=== PATIENT | female | born 1995 | race Caucasian/White ===

== ENCOUNTER 2020-01-11 08:28 | Day surgery (SDC) | payer OTHER, SELFPAY ==
[2020-01-05 18:43] VITALS: BMI 26.6
--- NOTE | 2020-01-09 15:37 | HO.ANESPROP2 ---
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 at home: Yes Do you presently have visiting nurse or other home services: No Smoking Status: Current every day smoker Smoked in Last 30 Days: Yes Patient Interested in Nicotine Replacement: No Use of substances other than those prescribed or required for medical reasons: Yes Substance Use Frequency: Daily Advance Directives: No Advance Directives Information Provided: No Advance Directives on File: No Recently lost weight without trying: No Meds Allergies Allergy/AdvReac Type Severity Reaction Status Date / Time amoxicillin Allergy Unknown unknown Verified 12/14/19 14:40 sulfacetamide Allergy Unknown Unknown Verified 12/14/19 14:40 [From Sulfacet-R] sulfur [From Sulfacet-R] Allergy Unknown Unknown Verified 12/14/19 14:40 Latex, Natural Rubber Allergy Itching Verified 01/05/20 18:43 Dust Mite Mixed Allergen Ext Allergy Unknown Unknown Uncoded 12/14/19 14:40 Home Medications Medication Instructions Recorded Confirmed Type bupropion HCl 300 mg PO DAILY 01/05/20 01/05/20 History cetirizine 1 tab PO DAILY 01/05/20 01/05/20 History fluticasone propionate 2 spray INTRANASAL DAILY 01/05/20 01/05/20 History lamotrigine 200 mg PO DAILY 01/05/20 01/05/20 History omeprazole 40 mg PO DAILY 01/05/20 01/05/20 History propranolol 60 mg PO BEDTIME 01/05/20 01/05/20 History Exam Exam Date and Time: January 09, 2020 1537 Height,Weight and Vital Signs: Height 5 ft 5 in Weight 72.575 kg Pertinent Lab Results Pertinent Lab Results: Laboratory Tests 10/03/19 10/03/19 16:35 16:35 WBC 7.2 Hgb 13.3 Hct 38.1 Plt Count 354 Sodium 139 Potassium 4.0 Chloride 106 BUN 13 Creatinine 0.95 Assessment and Plan Assessment Anesthesia Assessment: Chart Reviewed Documented by User: Ethna Hammer 01/11/20 10:13 PMFSH Past Medical History Medical History Anxiety Arthritis Depression Migraine Family History Family History Father Substance abuse Mother Bipolar disorder Family/Other FHx: mental illness Surgical History Surgical History No pertinent past surgical history Social History Social History Are you a primary respiratory care program director to a significant other at home: Yes Do you presently have visiting nurse or other home services: No Smoking Status: Current every day smoker Smoked in Last 30 Days: Yes Patient Interested in Nicotine Replacement: No Use of substances other than those prescribed or required for medical reasons: Yes Substance Use Frequency: Daily Advance Directives: No Advance Directives Information Provided: No Advance Directives on File: No Recently lost weight without trying: No Meds Allergies Allergy/AdvReac Type Severity Reaction Status Date / Time amoxicillin Allergy Unknown unknown Verified 12/14/19 14:40 sulfacetamide Allergy Unknown Unknown Verified 12/14/19 14:40 [From Sulfacet-R] sulfur [From Sulfacet-R] Allergy Unknown Unknown Verified 12/14/19 14:40 Latex, Natural Rubber Allergy Itching Verified 01/05/20 18:43 Dust Mite Mixed Allergen Ext Allergy Unknown Unknown Uncoded 12/14/19 14:40 Home Medications Medication Instructions Recorded Confirmed Type bupropion HCl 300 mg PO DAILY 01/05/20 01/05/20 History cetirizine 1 tab PO DAILY 01/05/20 01/05/20 History fluticasone propionate 2 spray INTRANASAL DAILY 01/05/20 01/05/20 History lamotrigine 200 mg PO DAILY 01/05/20 01/05/20 History omeprazole 40 mg PO DAILY 01/05/20 01/05/20 History propranolol 60 mg PO BEDTIME 01/05/20 01/05/20 History Exam Airway Mallampati Class: II TM Dist: >3cm Neck ROM: Full Loose/Missing/Broken Teeth: Yes (Chipped) Heart: RRR Assessment and Plan Assessment Anesthesia Assessment: Anesthesia Plan Discussed Final Anesthetic Review NPO: Yes ASA Class: II Final Preanesthetic Review: Consent Obtained/Reviewed Anesthetic Plan Anesthetic Plan: MAC: Disposition: Standard PACU
[2020-01-11 09:01] VITALS: BP 102/64; PULSE 84; RESP 16; TEMP 36.4; O2SAT 98
[2020-01-11] MEDS: Lactated Ringers 1,000 ML 100 ML IVCONT (09:04)
[2020-01-11 09:31] LABS: UPreg QC Valid YES; Urine Pregnancy NEGATIVE (NEGATIVE)
--- NOTE | 2020-01-11 09:42 | PC.NURSE ---
Lip ring removed, nasal ring removed by patient
--- NOTE | 2020-01-11 10:03 | MHC.SHP ---
Pre-Procedural Eval Section A The patient is an INPATIENT: No The History & Physical has been completed within 30 days and I have reviewed it.: No Section B Chief Complaint: Chronic Nausea Details of Present Illness: 24-year-old female follows up after recent barium swallow up for chronic nausea. She does use cannabis daily as well as jull. Omeprazole 20 mg daily-she continues to have nausea she does not feel it is acid reflux. HCG is negative, liver enzymes have been normal Chronic migraines-MRI- less than 2 years ago at - no findings- 11/16/2019 barium swallow IMPRESSION: Unremarkable examination. Relevant Family History (Specify if Yes): Yes Relevant Social History: Other (specify) (Marijuana use) Present Medications: see Short Stay Collaborative assessment Medical History: Significant History (Depression) Allergies: Allergies Allergy/AdvReac Type Severity Reaction Status Date / Time amoxicillin Allergy Unknown unknown Verified 12/14/19 14:40 sulfacetamide Allergy Unknown Unknown Verified 12/14/19 14:40 [From Sulfacet-R] sulfur [From Sulfacet-R] Allergy Unknown Unknown Verified 12/14/19 14:40 Latex, Natural Rubber Allergy Itching Verified 01/05/20 18:43 Dust Mite Mixed Allergen Ext Allergy Unknown Unknown Uncoded 12/14/19 14:40 Review of Systems Sugical H&P ROS: Negative: Constitution, Cardiovascular and Respiratory and Yes, Specify: Psychiatric (Depression) and Gastrointestinal (intermittent nausea) Exam Surgical H&P Exam: Normal: Heart, Normal: Lungs, Normal: Extremities and Normal: Abdomen Plan Diagnosis/Plan: Unchanged Patient has been examined and remains a candidate for the planned procedure
[2020-01-11 10:39] VITALS: BP 90/50; PULSE 79; RESP 16; TEMP 36.4; O2SAT 98
[2020-01-11 10:56] VITALS: BP 93/54; PULSE 68; RESP 16; O2SAT 97
[2020-01-11 11:09] VITALS: BP 111/47; PULSE 79; RESP 16; O2SAT 98
--- NOTE | 2020-01-11 11:21 | HO.POSTANES ---
Post Anesthesia Evaluation Post Anesthesia Evaluation Vital Signs: Vital Signs Temp Pulse Resp BP Pulse Ox 01/11/20 11:09 79 16 111/47 L 98 01/11/20 10:56 68 16 93/54 L 97 01/11/20 10:39 97.6 F 79 16 90/50 L 98 01/11/20 09:01 97.6 F 84 16 102/64 98 Anesthesia: Monitored Mental Status: Awake Pain Control: Satisfactory Nausea/Vomiting: None Hydration: Adequate Anesthesia-Related Issues: No Anes. Related Issues
--- NOTE | 2020-01-11 17:12 | P.OP_ITS ---
Operative Note Operative Note Narrative: Date of procedure: 01/11/20 Pre-op diagnosis: Chronic intermittent nausea x 6 months. No relief with Ondansetron. Smokes Marijuana since age 11 Post-op diagnosis: other ( gastritis) Procedure: FLEXIBLE TRANSORAL UPPER GASTROINTESTINAL ENDOSCOPY WITH BIOPSIES Consent: Indications for the procedure and potential complications of bleeding, perforation, reaction to medications and missed diagnosis were discussed with the patient and informed consent was obtained. Instrument: Olympus GIF H 190 mid size upper endoscope Monitoring: Vital signs and clinical assessment, continuous EKG monitoring, Pulse oximetry, Carbon Dioxide monitoring and blood pressure monitoring were done throughout the procedure. Procedure: The patient was placed in the left lateral decubitis position and pre-procedure medications were administered and a bite block was placed. The endoscope was inserted into the mouth and advanced under direct vision to the third part of duodenum. A careful inspection was made as the upper endoscope was withdrawn including a retroflexed examination of the proximal stomach; Findings and interventions are described below. Findings: Larynx: Normal Esophagus: GE junction at 40 cms. No esophagitis or Rai Stomach: Mild gastric erythema. Biopsies were obtained. Grade 2 flap valve on retroflexed examination of the cardia. Duodenum: Normal bulb and descending duodenum. Biopsies were obtained from 3rd part of duodenum to check for celiac sprue. Intervention: Biopsies as noted above Impression and Post Procedure Diagnosis: Endoscopy Findings: STOMACH: Gastritis DUODENUM: Normal - biopsied to check for celiac sprue Plan: Await pathology results Patient has an appointment on 01/18/20 in the [facility] with FLORENCIO Perez. Consider further evaluation with Gastric emptying study if pt complains of early satiety. Above findings were reviewed with the patient. Surgeon: Kenzie Rutledge MD Anesthesia: MAC (Dr Hammer) Program Coordinator Executive Education: Adrianne Arnold Estimated blood loss (mL): 0 Pathology: other (A. Small bowel, B. Gastric antrum) Condition: stable Disposition: PACU
== END 2020-01-11 23:59 | disposition home or self-care (01) ==
PROVIDERS: Nurse Practitioner; PCP Hospitalist; Visit Provider Internal Medicine Gastroenterology
PROC: 0DJ08ZZ Inspection of Upper Intestinal Tract, Via Natural or Artificial Opening Endoscopic (ICD-10-PCS; CPT 43235; principal; 2020-01-11 09:50)
DX: K29.50 Unspecified chronic gastritis without bleeding (principal); F12.90 Cannabis use, unspecified, uncomplicated; F32.9 Major depressive disorder, single episode, unspecified; Z79.899 Other long term (current) drug therapy; Z88.1 Allergy status to other antibiotic agents; Z88.2 Allergy status to sulfonamides; Z91.040 Latex allergy status
CPT/HCPCS: 43239; 81025; 88305; 88342

== ENCOUNTER → 2020-01-18 12:41 | Outpatient (BNVA) | payer OTHER, SELFPAY | PROVIDERS: PCP Hospitalist; Referring Provider Hospitalist; Visit Provider Physician Assistant | DX: R11.0 Nausea (principal); Z79.899 Other long term (current) drug therapy; Z98.890 Other specified postprocedural states | CPT/HCPCS: 99212 ==

== ENCOUNTER 2020-02-16 18:22 | Outpatient (REF) | payer OTHER, SELFPAY | END 2020-02-16 18:23 | disposition home or self-care (01) | LOC: HO.LNP 18:22 | PROVIDERS: Visit Provider Hospitalist | DX: Z20.828 Contact with and (suspected) exposure to other viral communicable diseases (principal); M54.2 Cervicalgia; R42 Dizziness and giddiness | CPT/HCPCS: U0003 ==

== ENCOUNTER 2020-05-06 17:54 | Outpatient (REF) | payer OTHER, SELFPAY ==
--- NOTE | ~2020-05-06 | MR_ITS ---
EXAMINATION: MR BRAIN WITHOUT CONTRAST CLINICAL INFORMATION: Evaluate for brainstem lesion. Dizziness and nausea. Headaches. COMPARISON: None. TECHNIQUE: Multiplanar, multisequence imaging of the brain was performed without contrast. FINDINGS: No diffusion abnormalities are identified to suggest an acute or subacute infarct. The ventricles are normal in size. No mass effect or midline shift is seen. No brain parenchymal signal abnormality is noted. No extra-axial fluid collections are seen. The brainstem and cerebellum are normal. The gradient refocused acquisition demonstrates no pathologic magnetic susceptibility artifact to indicate underlying acute or chronic blood products. The craniovertebral junction, marrow signal, and midline structures are normal. The major intracranial flow voids at the level of the chit[place] of [place] are preserved. The dural venous sinus flow voids are maintained. The mastoid air cells and paranasal sinuses are well aerated. MR/MR head/brain wo con IMPRESSION: Normal MRI of the brain. No acute process.
== END 2020-05-06 17:55 | disposition home or self-care (01) ==
LOC: HO.MRI 17:54
PROVIDERS: Visit Provider Psychiatry & Neurology Neurology
DX: R42 Dizziness and giddiness (principal)
CPT/HCPCS: 70551